=== PATIENT | female | born 1970 | race American Indian/Alaskan Native ===

== ENCOUNTER 2020-11-29 09:27 | Outpatient (CLI) | payer OTHER ==
--- NOTE | 2020-11-29 12:23 | XRay Report ---
RIGHT HAND 2 VIEWS INDICATION: RIGHT HAND PAIN. COMPARISON: None. IMPRESSION: No acute osseous or soft tissue abnormality. No significant DJD. BILATERAL KNEES 3 VIEWS INDICATION: Bilateral knee pain. COMPARISON: None. IMPRESSION: No acute osseous or soft tissue abnormality. No significant DJD. Signer Name: Michael Tobin Jr, MD Signed: 11/29/2020 12:19 PM Workstation Name: [id number]
== END 2020-11-29 09:28 | disposition home or self-care (01) ==
LOC: XRAY 09:27
PROVIDERS: ATTEND Internal Medicine
DX: M25.562 Pain in left knee (principal); M25.561 Pain in right knee; M79.641 Pain in right hand